=== PATIENT | female | born 1945 | race Caucasian/White ===

== ENCOUNTER → 2021-09-13 | Day surgery (SDC) | payer MEDICARE, BC ==
[~2021-09-13] MED LIST: Lactated Ringers 1,000 ML IV SCH; Lidocaine 2% 5 ML SDV ONE; Propofol 200 MG/20 ML SDV ONE; ePHEDrine 50 MG/ML SDV ONE; fentaNYL 50 MCG/ML SDV ONE
== END ==
LOC: CC.SDS 08:18
PROVIDERS: ATTEND Family Medicine
DX: Z12.11 Encounter for screening for malignant neoplasm of colon (principal); D12.5 Benign neoplasm of sigmoid colon; I10 Essential (primary) hypertension; E78.5 Hyperlipidemia, unspecified; R73.03 Prediabetes; B37.2 Candidiasis of skin and nail; Z88.0 Allergy status to penicillin; Z79.899 Other long term (current) drug therapy; Z98.890 Other specified postprocedural states
CPT/HCPCS: 00812; J2704; J3010; J7120

== ENCOUNTER 2024-12-28 13:25 | Observation (INO) | payer MEDICARE, BC ==
[2024-12-28 13:46] LABS: BASOPHILS ABSOLUTE AUTO 0.05 10^3/uL (0.00-0.50); BASOPHILS PERCENT AUTO 0.8 % (0-1); EOSINOPHILS ABSOLUTE AUTO 0.11 10^3/uL (0.00-1.50); EOSINOPHILS PERCENT AUTO 1.7 % (0-6); IMMATURE GRAN ABSOLUTE AUTO 0.01 10^3/uL (0.00-0.49); IMMATURE GRAN PERCENT AUTO 0.2 % (0.0-4.9); LYMPHOCYTES ABSOLUTE AUTO 2.03 10^3/uL (0.60-5.00); LYMPHOCYTES PERCENT AUTO 31.4 % (24-44); MONOCYTES ABSOLUTE AUTO 0.58 10^3/uL (0.00-1.50); MONOCYTES PERCENT AUTO 9.0 % (0-10); NEUTROPHILS ABSOLUTE AUTO 3.68 x10^3/uL (1.80-8.00); NEUTROPHILS PERCENT AUTO 56.9 % (41-71); PLATELET COUNT,PLT 221 10^3/uL (150-400); RED BLOOD CELL COUNT 5.00 x10^6/uL (4.00-5.50); WHITE BLOOD CELL COUNT,WBC 6.5 10^3/uL (4.0-11.0)
[2024-12-28] MEDS: Metoprolol Tartrate 5 MG/5 ML SDV IVPUSH ONE (13:55)
[2024-12-28 14:02] LABS: INR 1.04 (0.92-1.18); PTT,PARTIAL THROMBOPLSTIN TIME 34.3 SEC (20.0-30.0)
[2024-12-28 14:04] LABS: ALANINE AMINOTRANSFERASE,ALT 26 U/L (12-78); ASPARTATE AMNIOTRANSFERASE,AST 28 U/L (15-37); BILIRUBIN TOTAL 0.8 mg/dL (0.0-1.0); BLOOD UREA NITROGEN,BUN 18 mg/dL (7-18); CARBON DIOXIDE,CO2 30 mmol/L (21-32); CHLORIDE,CL 93 mEq/L (98-106); CREATININE 0.7 mg/dL (0.6-1.0); ESTIMATED GFR 89 mL/min (>=60); GLUCOSE RANDOM 129 mg/dL (75-99); LACTATE DEHYDROGENASE,LDH 191 U/L (100-190); POTASSIUM,K 3.9 mEq/L (3.5-5.0); PROTEIN TOTAL,TP 7.3 g/dL (6.4-8.2); SODIUM,NA 132 mEq/L (136-145)
[2024-12-28] MEDS ORDERED: Ondansetron 4 MG Tab.DIS PO PRN (17:43)
[2024-12-28] MEDS ORDERED: Ondansetron 4 MG/2 ML SDV IV PRN (17:43)
[2024-12-28] MEDS ORDERED: Sodium Chloride 0.9% 10 ML Syringe FLUSH PRN (17:43)
[2024-12-29 07:49] LABS: BASOPHILS ABSOLUTE AUTO 0.04 10^3/uL (0.00-0.50); BASOPHILS PERCENT AUTO 0.7 % (0-1); EOSINOPHILS ABSOLUTE AUTO 0.16 10^3/uL (0.00-1.50); EOSINOPHILS PERCENT AUTO 2.7 % (0-6); IMMATURE GRAN ABSOLUTE AUTO 0.01 10^3/uL (0.00-0.49); IMMATURE GRAN PERCENT AUTO 0.2 % (0.0-4.9); LYMPHOCYTES ABSOLUTE AUTO 2.37 10^3/uL (0.60-5.00); LYMPHOCYTES PERCENT AUTO 39.3 % (24-44); MONOCYTES ABSOLUTE AUTO 0.55 10^3/uL (0.00-1.50); MONOCYTES PERCENT AUTO 9.1 % (0-10); NEUTROPHILS ABSOLUTE AUTO 2.90 x10^3/uL (1.80-8.00); NEUTROPHILS PERCENT AUTO 48.0 % (41-71); PLATELET COUNT,PLT 216 10^3/uL (150-400); RED BLOOD CELL COUNT 4.84 x10^6/uL (4.00-5.50); WHITE BLOOD CELL COUNT,WBC 6.0 10^3/uL (4.0-11.0)
[2024-12-29 08:02] LABS: ALANINE AMINOTRANSFERASE,ALT 28.0 U/L (12-78); ASPARTATE AMNIOTRANSFERASE,AST 26.0 U/L (15-37); BILIRUBIN TOTAL 1.0 mg/dL (0.0-1.0); BLOOD UREA NITROGEN,BUN 16.0 mg/dL (7-18); CARBON DIOXIDE,CO2 31.0 mmol/L (21-32); CHLORIDE,CL 94.0 mEq/L (98-106); CREATININE 0.7 mg/dL (0.6-1.0); EST CRCL DRUG DOSING (CG) 63.01 mL/min; GLUCOSE RANDOM 103.0 mg/dL (75-99); POTASSIUM,K 3.6 mEq/L (3.5-5.0); PROTEIN TOTAL,TP 6.3 g/dL (6.4-8.2); SODIUM,NA 133.0 mEq/L (136-145)
[2024-12-29 08:05] LABS: ESTIMATED GFR 89.0 mL/min (>=60)
[2024-12-29] MEDS: Calcium Carbonate/Vitamin D3 1250 MG-5 MCG Tab PO SCH (08:15)
[2024-12-29 12:35] VITALS: BP 117/61; PULSE 57
== END 2024-12-29 14:48 | disposition home or self-care (01) ==
LOC: CC.ED 13:25 → CC.MS 14:45 → UNDOADMOB 14:45 → CC.MS 17:36
PROVIDERS: ADMIT Physician Assistant Medical; ATTEND Physician Assistant Medical
DX: I48.91 Unspecified atrial fibrillation (principal); I10 Essential (primary) hypertension; E78.00 Pure hypercholesterolemia, unspecified; Z79.01 Long term (current) use of anticoagulants; Z88.0 Allergy status to penicillin; Z79.899 Other long term (current) drug therapy
CPT/HCPCS: 36415; 80053; 83615; 83735; 84484; 85025; 85610; 85730; 93005; 93010; 96374; 99285; A9270; J3490